=== PATIENT | female | born 1995 | race Two or more races ===

== ENCOUNTER 2023-04-21 13:55 | Emergency (ER) | payer MEDICAID, OTHER ==
[~2023-04-21] VITALS: Ht 167.6 cm; Wt 55.0 kg
[2023-04-21 15:17] LABS: Basophils # (auto) 0.1 10 ^3/uL (0-0.2); Basophils % (auto) 0.7 % (0.0-2.0); Eosinophils # (auto) 0.1 10 ^3/uL (0-0.8); Eosinophils % (auto) 0.5 % (0.0-7.0); Hematocrit 42.8 % (36.0-46.0); Hemoglobin 13.9 g/dL (12.2-16.2); Lymphocytes # (auto) 1.2 10 ^3/uL (0.4-5.4); Lymphocytes % (auto) 7.1 % (10.0-50.0); Mean Corpuscular Hemoglobin 27.2 pg (28.0-32.0); Mean Corpuscular Hgb Conc. 32.4 g/dL (32.0-36.0); Monocytes # (auto) 1.1 10 ^3/uL (0-1.3); Monocytes % (auto) 6.5 % (0.0-12.0); Neutrophils # (auto) 14.7 10 ^3/uL (1.6-8.6); Neutrophils % (auto) 85.2 % (37.0-80.0); Red Blood Cells 5.09 10^6/uL (4.0-5.20); Red Cell Distribution Width 15.6 % (11.8-14.3); White Blood Cell 17.3 10^3/uL (4.4-10.8)
[2023-04-21 17:14] LABS: Alkaline Phosphatase 75 U/L (46-116); Anion Gap 12 (5-15); Aspartate Aminotransferase 45 U/L (13-40); Blood Alcohol < 3.0 mg/dL (<10); Calcium 8.8 mg/dL (8.7-10.4); Carbon Dioxide 19 mmol/L (20-30); Chloride 108 mmol/L (98-107); Glucose 129 mg/dL (74-106); Sodium 139 mmol/L (136-145)
[2023-04-21 17:15] LABS: Albumin 3.9 g/dL (3.2-4.8); Bilirubin, Total 0.2 mg/dL (0.2-1.0); Total Protein 6.8 g/dL (5.7-8.2)
[2023-04-21 17:16] LABS: Alanine Aminotransferase 17 U/L (7-40); Potassium 4.1 mmol/L (3.5-5.1)
[2023-04-21 17:18] LABS: BUN/Creatinine Ratio 7.4 (10.0-20.0); Blood Urea Nitrogen < 5 mg/dL (9-23)
[2023-04-21 18:03] VITALS: BP 105/69
[2023-04-21 18:12] LABS: Amphetamine Screen, Urine Neg (NEGATIVE); Barbiturate Scree,Urine Neg (NEGATIVE); Benzodiazephine Screen, Urine Neg (NEGATIVE); Cannabinoid Screen, Urine Pos (NEGATIVE); Cocaine Screen, Urine Neg (NEGATIVE); Opiate Scree,Urine Neg (NEGATIVE); Phencyclidine Screen, Urine Neg (NEGATIVE)
[2023-04-21 18:31] LABS: Urine Bacteria FEW /hpf (None Seen); Urine Blood Negative /uL (Negative); Urine Clarity HAZY (Clear); Urine Color Colorless (Yellow); Urine Protein, UAD Negative (Negative); Urine Urobilinogen Normal (Negative); Urine WBC 6 /hpf (0 - 5); Urine pH 6.5 (5.0-8.0)
[2023-04-21 18:37] VITALS: PULSE 95; RESP 17; O2SAT 95
== END 2023-04-21 19:02 | disposition left against medical advice (07) ==
LOC: ER 13:55 → EDBD 13:55 → ER 19:02
DX: T40.411A Poisoning by fentanyl or fentanyl analogs, accidental (unintentional), initial encounter (principal); F20.9 Schizophrenia, unspecified; Y92.89 Other specified places as the place of occurrence of the external cause
CPT/HCPCS: 36415; 80053; 80307; 80320; 81001; 81025; 85025

== ENCOUNTER 2023-06-15 08:04 | Emergency (ER) | payer MEDICAID ==
[~2023-06-15] VITALS: Ht 165.1 cm; Wt 58.3 kg
[2023-06-15 08:10] VITALS: BP 135/92; PULSE 74; RESP 16; TEMP 97.7; O2SAT 97
[2023-06-15] MEDS ORDERED: NAPR-746 PO (08:49)
[2023-06-15] MEDS ORDERED: TRIA0.1O TOP (08:49)
[2023-06-15] MEDS ORDERED: KETOROLAC TROMETH 60MG/2ML VIAL IM ONE (09:00)
[2023-06-15] MEDS ORDERED: ACETAMINOPHEN 325 MG TAB PO ONE (09:00)
== END 2023-06-15 09:14 | disposition home or self-care (01) ==
LOC: ER 08:04
DX: M72.2 Plantar fascial fibromatosis (principal)

== ENCOUNTER 2023-12-13 02:32 | Emergency (ER) | payer MEDICAID ==
[~2023-12-13] VITALS: Ht 165.1 cm; Wt 54.5 kg
[~2023-12-13 02:32] MED LIST: NAPR-746 PO; TRIA0.1O TOP
[2023-12-13 03:09] LABS: Basophils # (auto) 0.1 10 ^3/uL (0-0.2); Basophils % (auto) 0.5 % (0.0-2.0); Eosinophils # (auto) 0.1 10 ^3/uL (0-0.8); Eosinophils % (auto) 0.5 % (0.0-7.0); Hematocrit 42.2 % (36.0-46.0); Hemoglobin 13.6 g/dL (12.2-16.2); Lymphocytes # (auto) 2.3 10 ^3/uL (0.4-5.4); Lymphocytes % (auto) 16.2 % (10.0-50.0); Mean Corpuscular Hgb Conc. 32.3 g/dL (32.0-36.0); Mean Corpuscular Volume 86.7 fL (80.0-100.0); Monocytes # (auto) 1.1 10 ^3/uL (0-1.3); Monocytes % (auto) 8.1 % (0.0-12.0); Neutrophils # (auto) 10.5 10 ^3/uL (1.6-8.6); Neutrophils % (auto) 74.7 % (37.0-80.0); Nucleated Red Blood Cells % 0.1 %; Red Blood Cells 4.87 10^6/uL (4.0-5.20); Red Cell Distribution Width 16.2 % (11.8-14.3); White Blood Cell 14.1 10^3/uL (4.4-10.8)
[2023-12-13 03:20] LABS: Chloride 108 mmol/L (98-107); Potassium 3.2 mmol/L (3.5-5.1); Sodium 140 mmol/L (136-145)
[2023-12-13 03:21] LABS: Anion Gap 11 (5-15); Carbon Dioxide 21 mmol/L (20-30)
[2023-12-13 03:26] LABS: BUN/Creatinine Ratio 6.6 (10.0-20.0); Blood Urea Nitrogen 6 mg/dL (9-23); Glucose 164 mg/dL (74-106)
[2023-12-13] MEDS ORDERED: CEPH250C PO (04:18)
[2023-12-13] MEDS: POTASSIUM EFFERVESENT TAB 25 MEQ PO ONE (05:16)
[2023-12-13 05:20] VITALS: BP 120/73; PULSE 98; RESP 16; O2SAT 98
[2023-12-13] MEDS: SODIUM CHLORIDE 0.9% 1,000 ML IV ONE (05:23)
[2023-12-13] MEDS: cefTRIAXone 1GM/50ML D5W 50 ML IV ONE (05:23)
== END 2023-12-13 05:29 | disposition home or self-care (01) ==
LOC: ER 02:32 → EDUNIT# 02:32 → EDBD 02:32 → ER 05:23
DX: T40.411A Poisoning by fentanyl or fentanyl analogs, accidental (unintentional), initial encounter (principal); F20.9 Schizophrenia, unspecified; D72.829 Elevated white blood cell count, unspecified; Y92.002 Bathroom of unspecified non-institutional (private) residence as the place of occurrence of the external cause
CPT/HCPCS: 36415; 80048; 84484; 85025